=== PATIENT | female | born 1985 | race Caucasian/White ===

== ENCOUNTER 2017-10-09 10:30 | Inpatient (IN) | payer OTHER ==
[2017-10-09] MEDS ORDERED: CITRIC ACID/SODIUM CITRATE 30 ML UNIT-DOSE CUP PO ONE (10:56)
[2017-10-09] MEDS ORDERED: ELECTROLYTE-148 SOLN 1,000 ML IV SCH (11:00)
[2017-10-09 11:20] VITALS: BMI 34.0
--- NOTE | 2017-10-09 11:32 | HP ---
Past Medical History - Primary Care Physician PCP:: Gurpreet Gillis - Admission Chief Complaint: 39 weeks, breech presentation for c/s History of Present Illness: 31 yo f g1 po edc by date and sono 10/13/17 39 weeks ,breech presentation, confirmed with bed side sono admitted for c/s rba discussed, cx closed 50, breech ,high , fhr cat 1, History Source: Patient Limitations to Obtaining History: Language Barrier - Past Medical History ...: 1 ...Para: 0 ...Term: 0 ...: 0 ...Spon : 0 ...Induced : 0 ...Multiple Gestation: 0 ...LMP: 01/06/17 ... Weeks Gestation by Dates: 27.0 ...EDC by Dates: 10/13/17 ...EDC by Sono: 10/13/17 - Past Surgical History Hx Myomectomy: No Hx Transabdominal Cerclage: No - Smoking History Smoking history: Never smoked Have you smoked in the past 12 months: No - Alcohol/Substance Use Hx Alcohol Use: No - Social History Usual Living Arrangement: Yes: With Spouse History of Recent Travel: No Home Medications - Allergies Allergies/Adverse Reactions: Allergies Allergy/AdvReac Type Severity Reaction Status Date / Time No Known Allergies Allergy Verified 07/14/17 18:14 - Home Medications Home Medications: Ambulatory Orders Pnv No.95/Ferrous Fum/Folic AC [ Vitamin Tablet] 1 each PO DAILY Review of Systems - Review of Systems Constitutional: reports: No Symptoms Eyes: reports: No Symptoms HENT: reports: No Symptoms Neck: reports: No Symptoms Cardiovascular: reports: No Symptoms Respiratory: reports: No Symptoms Gastrointestinal: reports: No Symptoms Genitourinary: reports: No Symptoms Breasts: reports: No Symptoms Reported Musculoskeletal: reports: No Symptoms Integumentary: reports: No Symptoms Neurological: reports: No Symptoms Endocrine: reports: No Symptoms Hematology/Lymphatic: reports: No Symptoms Psychiatric: reports: No Symptoms Physical Exam - Maternity Vital Signs: Vital Signs Temperature 98 F 10/09/17 10:30 Pulse Rate 83 10/09/17 10:30 Respiratory Rate 18 10/09/17 10:30 Blood Pressure 138/76 10/09/17 10:30 O2 Sat by Pulse Oximetry (%) Constitutional: Yes: Well Nourished, No Distress, Calm Eyes: Yes: WNL, Conjunctiva Clear, EOM Intact HENT: Yes: WNL, Atraumatic, Normocephalic Neck: Yes: WNL, Supple, Trachea Midline Cardiovascular: Yes: WNL, Regular Rate and Rhythm Breast(s): Yes: WNL - Abdominal Exam/OB Number of Fetuses: Single Presentation: Vertex Contractions: No Intensity: Unaware Monitor Mode: External Heart Rate Location: [facility] Category: I Accelerations: Uniform - Vaginal Exam/OB Vaginal Bleediing: No Speculum Exam: No Dilatation (cm): closed Effacement (%): 50 Amniotic Membrane Status: Intact Station: -4 - Physical Exam Musculoskeletal: Yes: WNL Extremities: Yes: WNL Edema: Yes Edema: LLE: Trace, RLE: Trace Deep Tendon Reflex Grade: Normal +2 Hemorrhage Risk Assessment - Risk Factors Medium Risk Factors: Yes: None High Risk Factors: Yes: None Risk Score: 1 Risk Level: Medium Risk Problem List - Problems (1) with 39 completed weeks gestation Code(s): Z3A.39 - 39 WEEKS GESTATION OF (2) Breech presentation Code(s): O32.1XX0 - MATERNAL CARE FOR BREECH PRESENTATION, UNSP Qualifiers: Fetus number: single or unspecified fetus Qualified Code(s): O32.1XX0 - Maternal care for breech presentation, not applicable or unspecified Assessment/Plan c/s rba discussed
[2017-10-09] MEDS ORDERED: morphine SULFATE/Preservative Free 0.5 MG/ML (1cc Syringe) ONE (13:10)
[2017-10-09] MEDS ORDERED: ePHEDrine SULFATE 50 MG/1 ML AMPULE ONE (13:10)
[2017-10-09] MEDS ORDERED: PHENYLEPHRINE HCL 10 MG/1 ML SINGLE DOSE VIAL ONE (13:10)
[2017-10-09] MEDS ORDERED: OXYTOCIN 20 UNITS in 0.9% NS 20 UNIT/1,000 ML INFUS.BAG IV ONE ×2 (13:34→15:46)
[2017-10-09] MEDS ORDERED: BENZOCAINE 28 GM HEMORRHOIDAL OINTMENT PR PRN (13:42)
[2017-10-09] MEDS ORDERED: BENZOCAINE 20% 57 GM BOTTLE TP PRN (13:42)
[2017-10-09] MEDS ORDERED: WITCH HAZEL 50% (TUCKS) 40 PAD/JAR PAD TP PRN (13:42)
[2017-10-09] MEDS ORDERED: IBUPROFEN 800 MG/8 ML IJ IVPB PRN (13:42)
[2017-10-09] MEDS ORDERED: METHYLERGONOVINE MALEATE 0.2 MG/1 ML AMP IM PRN (13:42)
[2017-10-09] MEDS ORDERED: oxyCODONE HCL 5 MG TABLET PO PRN (13:42)
[2017-10-09] MEDS ORDERED: diphenhydrAMINE HCL 25 MG CAPSULE (FP) PO PRN (13:42)
[2017-10-09] MEDS ORDERED: OXYTOCIN 20 UNITS in 0.9% NS 20 UNIT/1,000 ML INFUS.BAG IV SCH (13:45)
[2017-10-09] MEDS ORDERED: DEXTROSE 5%-LACTATED RINGERS 1,000 ML IV SCH (13:45)
[2017-10-09] MEDS ORDERED: morphine SULFATE/Preservative Free 0.5 MG/ML (1cc Syringe) SPIN ONE (14:48)
[2017-10-09] MEDS ORDERED: ONDANSETRON 4 MG/2 ML VIAL IVPUSH PRN (14:48)
--- NOTE | 2017-10-09 16:19 | OP ---
DATE OF OPERATION: 10/09/2017 PREOPERATIVE DIAGNOSES: , 39 weeks; breech presentation. POSTOPERATIVE DIAGNOSES: , 39 weeks; breech presentation, double footling breech; and fibroid uterus. SURGEON: Gurpreet Gillis MD GUM DIPPER: KURT Moyer ANESTHESIA: Spinal anesthesia. ANESTHESIOLOGIST: Dr. Huffman ESTIMATED BLOOD LOSS: 700 mL. OPERATIVE REPORT: Patient was taken to operating room. Under adequate spinal anesthesia, abdomen and perineum were prepped and draped. Pfannenstiel abdominal skin incision was made. Abdominal wall was cut layer by layer until peritoneum was exposed and incised. Upon entering the abdominal cavity, palpation of the uterus showed the baby appeared to be in breech presentation with multiple fibroids intramural felt. Then bladder flap was developed and then a low-transverse incision was made. Incision extended laterally. Amniotic sac was entered, clear fluid. Double footling breech was delivered via breech without any difficulty. Live baby girl was delivered, 9, 9. Placenta was delivered manually. Uterine cavity was cleared of all remaining tissue. Uterine incision was closed in 2 layers, 1st layer with 0 Biosyn continuous suture, the 2nd layer with 0 Biosyn imbricating the 1st layer. Bladder flap was closed with 0 Vicryl continuous suture. Both tubes and ovaries were checked and normal. No active bleeding was seen. Also, multiple submucous leiomyoma were felt during the cleaning of the cavity and then all the lap pads, sponge count, and instrument count were correct. Pelvic cavity several times irrigated and then peritoneum was closed with 0 Biosyn continuous suture, muscles were brought together with interrupted suture of 0 Biosyn, fascia was closed with 0 Biosyn continuous suture, subcutaneous fat with interrupted suture of 0 Biosyn and the skin was closed with isra. Patient tolerated procedure, left OR in good condition. Dieter [id number]
[2017-10-09] MEDS: CEFAZOLIN 1 GM PUSH 1 GM/10 ML DISP.SYRIN IVPUSH SCH (18:31)
[2017-10-10] MEDS: CEFAZOLIN 1 GM PUSH 1 GM/10 ML DISP.SYRIN IVPUSH SCH ×2 (02:06→10:07)
[2017-10-10 08:09] LABS: BASO % 0.5 % (0-2.0); EOS % 1.1 % (0-4.5); HEMATOCRIT 31.5 % (32.4-45.2); HEMOGLOBIN 10.4 GM/dL (10.7-15.3); LYMPH % 16.7 % (8-40); MCH 27.5 pg (25.7-33.7); MEAN CELL VOLUME 83.2 fl (80-96); NEUT % 74.7 % (42.8-82.8); PLATELET COUNT 140 K/MM3 (134-434); RBC 3.79 M/mm3 (3.60-5.2); RDW 16.8 % (11.6-15.6); WHITE BLOOD COUNT 9.3 K/mm3 (4.0-10.0)
--- NOTE | 2017-10-10 08:58 | PN ---
Progress Note (short form) - Note Progress Note: POD #1 - s/p under spinal anesthesia with duramorph. VSS. Pt. doing well, sitting up comfortably in bed. No complaints. Good pain control. No apparent anesthetic complications noted. Continue current care.
[2017-10-10] MEDS: oxyCODONE HCL 5 MG TABLET PO PRN ×2 (09:23→21:56)
[2017-10-10] MEDS: SIMETHICONE 80 MG TAB.CHEW (FP) PO PRN ×2 (09:23→21:55)
--- NOTE | 2017-10-10 09:24 | PN ---
Post Progress Note Post Day: 1 Type of Delivery: Primary C/S Vital Signs: Vital Signs Temperature 99 F 10/10/17 06:00 Pulse Rate 83 10/10/17 01:13 Respiratory Rate 20 10/10/17 08:00 Blood Pressure 124/72 10/10/17 01:13 O2 Sat by Pulse Oximetry (%) 99 10/09/17 15:30 Breast Exam: Yes: Soft Uterus: Yes: Fundus Firm Incision: Yes: Dressing dry and intact Abdomen/GI: Yes: Abdomen soft Lochia: Yes: Rubra Lochia, amount: Small Extremities: Yes: Calves non-tender Perineum: Yes: Intact Activity: Ambulating - Labs Labs: CBC WBC 9.3 K/mm3 (4.0-10.0) 10/10/17 06:20 RBC 3.79 M/mm3 (3.60-5.2) D 10/10/17 06:20 Hgb 10.4 GM/dL (10.7-15.3) L D 10/10/17 06:20 Hct 31.5 % (32.4-45.2) L D 10/10/17 06:20 MCV 83.2 fl (80-96) 10/10/17 06:20 MCH 27.5 pg (25.7-33.7) 10/10/17 06:20 MCHC 33.0 g/dl (32.0-36.0) 10/10/17 06:20 RDW 16.8 % (11.6-15.6) H 10/10/17 06:20 Plt Count 140 K/MM3 (134-434) 10/10/17 06:20 MPV 9.0 fl (7.5-11.1) 10/10/17 06:20 Neutrophils % 74.7 % (42.8-82.8) 10/10/17 06:20 Lymphocytes % 16.7 % (8-40) 10/10/17 06:20 Monocytes % 7.0 % (3.8-10.2) 10/10/17 06:20 Eosinophils % 1.1 % (0-4.5) 10/10/17 06:20 Basophils % 0.5 % (0-2.0) 10/10/17 06:20 Assessment/Plan pain control oob reg diet continue care
[2017-10-10] MEDS: ACETAMINOPHEN 325 MG TABLET (FP) PO PRN ×2 (09:25→21:55)
[2017-10-10] MEDS ORDERED: FLU VACC QS2017-18 36MOS UP/PF 60 MCG/0.5 ML SYRINGE IM ONE (10:00)
[2017-10-10] MEDS: ENOXAPARIN NA (PORCINE) 40 MG/0.4 ML DISP.SYRIN SQ SCH (10:06)
[2017-10-10] MEDS ORDERED: BISACODYL 10 MG SUPP.RECT RC PRN (13:42)
[2017-10-11] MEDS: ACETAMINOPHEN 325 MG TABLET (FP) PO PRN ×5 (03:44→21:58)
[2017-10-11] MEDS: SIMETHICONE 80 MG TAB.CHEW (FP) PO PRN ×4 (03:44→17:05)
[2017-10-11] MEDS: oxyCODONE HCL 5 MG TABLET PO PRN ×4 (03:44→21:59)
[2017-10-11] MEDS: ENOXAPARIN NA (PORCINE) 40 MG/0.4 ML DISP.SYRIN SQ SCH (09:32)
--- NOTE | 2017-10-11 13:06 | PN ---
Post Progress Note - Subjective Subjective: Pt feeling well. +tolerating diet. Ambulating. +flatus. Pain well controlled. Post Day: 2 Type of Delivery: Primary C/S Vital Signs: Vital Signs Temperature 98.4 F 10/11/17 08:57 Pulse Rate 68 10/11/17 08:57 Respiratory Rate 20 10/11/17 08:57 Blood Pressure 133/80 10/11/17 08:57 O2 Sat by Pulse Oximetry (%) 99 10/09/17 15:30 Breast Exam: Yes: Soft Uterus: Yes: Fundus Firm Incision: Yes: Lonnie intact Abdomen/GI: Yes: Abdomen soft Lochia, amount: Small Extremities: Yes: Calves non-tender Activity: Ambulating - Labs Labs: CBC WBC 9.3 K/mm3 (4.0-10.0) 10/10/17 06:20 RBC 3.79 M/mm3 (3.60-5.2) D 10/10/17 06:20 Hgb 10.4 GM/dL (10.7-15.3) L D 10/10/17 06:20 Hct 31.5 % (32.4-45.2) L D 10/10/17 06:20 MCV 83.2 fl (80-96) 10/10/17 06:20 MCH 27.5 pg (25.7-33.7) 10/10/17 06:20 MCHC 33.0 g/dl (32.0-36.0) 10/10/17 06:20 RDW 16.8 % (11.6-15.6) H 10/10/17 06:20 Plt Count 140 K/MM3 (134-434) 10/10/17 06:20 MPV 9.0 fl (7.5-11.1) 10/10/17 06:20 Neutrophils % 74.7 % (42.8-82.8) 10/10/17 06:20 Lymphocytes % 16.7 % (8-40) 10/10/17 06:20 Monocytes % 7.0 % (3.8-10.2) 10/10/17 06:20 Eosinophils % 1.1 % (0-4.5) 10/10/17 06:20 Basophils % 0.5 % (0-2.0) 10/10/17 06:20 Assessment/Plan Pt POD#2 s/p primary c/s for breech. continue routine care ambulation as tolerated pain management as needed Dr. Magaña
[2017-10-11] MEDS: SENNOSIDES/DOCUSATE COMBO (SENNA PLUS) TABLET (UD) PO PRN (21:59)
[2017-10-12] MEDS: oxyCODONE HCL 5 MG TABLET PO PRN (02:53)
[2017-10-12] MEDS: IBUPROFEN 600 MG TABLET (FP) PO PRN ×4 (02:53→21:09)
[2017-10-12] MEDS: ACETAMINOPHEN 325 MG TABLET (FP) PO PRN ×3 (07:36→21:08)
[2017-10-12] MEDS: SIMETHICONE 80 MG TAB.CHEW (FP) PO PRN ×3 (07:37→21:08)
[2017-10-12 08:49] LABS: BASO % 0.7 % (0-2.0); EOS % 2.2 % (0-4.5); HEMATOCRIT 31.2 % (32.4-45.2); HEMOGLOBIN 10.2 GM/dL (10.7-15.3); LYMPH % 26.2 % (8-40); MCHC 32.6 g/dl (32.0-36.0); MEAN CELL VOLUME 82.9 fl (80-96); MEAN PLT VOLUME 8.6 fl (7.5-11.1); MONO % 6.8 % (3.8-10.2); NEUT % 64.1 % (42.8-82.8); PLATELET COUNT 179 K/MM3 (134-434); RBC 3.76 M/mm3 (3.60-5.2); RDW 16.6 % (11.6-15.6); WHITE BLOOD COUNT 6.9 K/mm3 (4.0-10.0)
[2017-10-12] MEDS: ENOXAPARIN NA (PORCINE) 40 MG/0.4 ML DISP.SYRIN SQ SCH (09:57)
[2017-10-12] MEDS: SENNOSIDES/DOCUSATE COMBO (SENNA PLUS) TABLET (UD) PO PRN (21:08)
[2017-10-13] MEDS: SIMETHICONE 80 MG TAB.CHEW (FP) PO PRN (06:06)
[2017-10-13] MEDS: ACETAMINOPHEN 325 MG TABLET (FP) PO PRN ×2 (06:06→11:54)
[2017-10-13] MEDS: IBUPROFEN 600 MG TABLET (FP) PO PRN ×2 (06:07→11:54)
--- NOTE | 2017-10-13 09:19 | DS ---
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 No blood transfusion, no additional dosage of antibiotic required. Condition: Good - Instructions Diet, Activity, Other Instructions: Regular diet No driving, no lifting x 4 weeks F/U in clinic in one week Disposition: HOME - Home Medications Comprehensive Discharge Medication List: Ambulatory Orders Pnv No.95/Ferrous Fum/Folic AC [ Vitamin Tablet] 1 each PO DAILY
[2017-10-13] MEDS: ENOXAPARIN NA (PORCINE) 40 MG/0.4 ML DISP.SYRIN SQ SCH (09:20)
[2017-10-13 11:27] VITALS: BP 113/64; PULSE 60; TEMP 97.8
--- NOTE | 2017-10-14 14:08 | PATH ---
Surgical Pathology Report Patient Name: EMMIE HORVATH Med. Rec. 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 Specimen(s) Received PLACENTA Clinical History , 39.3 weeks breech presentation Infertility treated with Clomid, fibroid uterus Final Diagnosis PLACENTA, SECTION: 579 g THIRD TRIMESTER PLACENTA WITH TRIVASCULAR UMBILICAL CORD AND UNREMARKABLE PLACENTAL MEMBRANES. Electronically Signed Ashley Crump M.D. Gross Description The specimen is received fresh labeled placenta and is a 579 gram, 17.5 x 13.5 x 3.2 cm. placenta with attached membranes and umbilical cord. The attached membranes are chu, translucent with focal opacities and insert marginally. The umbilical cord measures 35 cm. in length and averages 1 cm. in diameter. The cord inserts eccentrically, 5 cm. to the nearest margin. No true knots or strictures are identified. Cut surface of the umbilical cord reveals 3 vessels. The surface is perez-blue with minimal fibrin deposition and appropriate caliber vessels. The maternal surface is red-brown with focal defects. Sectioning reveals red-brown, spongy parenchyma. No lesions are identified. Business Process Lead sections are submitted in three cassettes as follows: 1- membrane rolls and umbilical cord; 2-3- full thickness sections of placenta. /10/13/201710/13/2017
== END 2017-10-13 13:10 | disposition home or self-care (01) | DRG 540 ==
LOC: JLDR 10:30 → J3W 16:40
PROVIDERS: ADMIT Obstetrics & Gynecology; ATTEND Obstetrics & Gynecology
PROC: 10D00Z1 Extraction of Products of Conception, Low, Open Approach (ICD-10-PCS; principal; 2017-10-09)
DX: O32.8XX0 Maternal care for other malpresentation of fetus, not applicable or unspecified (principal); O34.13 Maternal care for benign tumor of corpus uteri, third trimester; D25.1 Intramural leiomyoma of uterus; Z3A.39 39 weeks gestation of pregnancy; Z37.0 Single live birth
CPT/HCPCS: 36415; 85025; 88307-TC; 90686

== ENCOUNTER 2022-10-31 21:20 | Emergency (ER) | payer OTHER ==
[2022-10-31 21:36] VITALS: BP 146/78; PULSE 85; RESP 18; TEMP 98.1; BMI 31.1
[2022-10-31 23:35] LABS: BASO % 0.3 % (0-2.0); EOS % 0.1 % (0-4.5); HEMOGLOBIN 11.6 GM/dL (10.7-15.3); LYMPH % 15.9 % (8-40); MCH 23.4 pg (25.7-33.7); MCHC 31.3 g/dl (32.0-36.0); MEAN CELL VOLUME 74.6 fl (80-96); MEAN PLT VOLUME 9.5 fl (7.5-11.1); MONO % 4.1 % (3.8-10.2); NEUT % 79.6 % (42.8-82.8); PLATELET COUNT 277 10^3/uL (134-434); RBC 4.96 M/mm3 (3.60-5.2); RDW 16.4 % (11.6-15.6); WHITE BLOOD COUNT 8.1 K/mm3 (4.0-10.0)
[2022-10-31 23:51] LABS: ALBUMIN 3.8 g/dl (3.4-5.0); CALCIUM 8.8 mg/dL (8.5-10.1)
[2022-10-31 23:54] LABS: CREATININE 0.4 mg/dL (0.55-1.3)
[2022-10-31 23:57] LABS: BILIRUBIN,TOTAL 0.3 mg/dL (0.2-1); TOT PROT 7.5 g/dl (6.4-8.2)
[2022-11-01] MEDS ORDERED: DEXAMETHASONE 4 MG TABLET (FP) PO ONE (01:12)
[2022-11-01] MEDS ORDERED: DEXAMETHASONE 4 MG TABLET (FP) ONE (01:33)
== END 2022-11-01 01:53 | disposition home or self-care (01) ==
LOC: JER 21:20
DX: R04.0 Epistaxis (principal); J02.9 Acute pharyngitis, unspecified
CPT/HCPCS: 0241U-QW; 36415; 80053; 85025; 87070; 87651; 99283-25

== ENCOUNTER 2023-08-09 01:01 | Emergency (ER) | payer OTHER ==
[2023-08-09] MEDS ORDERED: ACETAMINOPHEN 325 MG TABLET (FP) ONE (01:02)
[2023-08-09 01:12] VITALS: BP 133/78; PULSE 90; RESP 18; TEMP 100.1; BMI 30.1
[2023-08-09 01:13] LABS: HEMATOCRIT 36.4 % (32.4-45.2); HEMOGLOBIN 11.8 GM/dL (10.7-15.3); PLATELET COUNT 201 10^3/uL (134-434); RBC 5.04 M/mm3 (3.60-5.2); WHITE BLOOD COUNT 8.6 K/mm3 (4.0-10.0)
[2023-08-09] MEDS ORDERED: ACETAMINOPHEN 325 MG TABLET (FP) PO ONE (01:38)
[2023-08-09] MEDS ORDERED: SODIUM CHLORIDE 0.9% 500 ML INFUS.BAG IV ONE (01:41)
[2023-08-09 02:02] LABS: ALBUMIN 3.6 g/dl (3.4-5.0); BILIRUBIN,TOTAL 0.4 mg/dL (0.2-1); BLOOD UREA NITROGEN 5.7 mg/dL (7-18); CALCIUM 8.4 mg/dL (8.5-10.1); CREATININE 0.5 mg/dL (0.55-1.3); TOT PROT 7.2 g/dl (6.4-8.2)
[2023-08-09 04:16] LABS: EPI CELLS 15 /uL (0-25.1); HYALINE CASTS 0 /uL (0-3.1); URINE APPEARANCE CLEAR; URINE BACTERIA 6 /uL (0-1359); URINE BILIRUBIN NEGATIVE (NEGATIVE); URINE COLOR YELLOW; URINE GLUCOSE (UA) NEGATIVE (NEGATIVE); URINE KETONE NEGATIVE (NEGATIVE); URINE LEUK ESTERASE 1+ (NEGATIVE); URINE NITRITE NEGATIVE (NEGATIVE); URINE PROTEIN NEGATIVE (NEGATIVE); URINE RBC 15 /uL (0-23.9); URINE UROBILINOGEN 0.2 mg/dL (0.2-1.0); URINE WBC 39 /uL (0-25.8)
[2023-08-09] MEDS ORDERED: NITROFURANTOIN MACROCRYSTAL 50 MG CAPSULE (FP) PO SCH (05:15)
[2023-08-09] MEDS ORDERED: metroNIDAZOLE 250 MG TABLET PO ONE (05:20)
== END 2023-08-09 05:47 | disposition home or self-care (01) ==
LOC: JER 01:01
DX: R10.9 Unspecified abdominal pain (principal); R19.7 Diarrhea, unspecified; R00.0 Tachycardia, unspecified; R11.0 Nausea; R50.9 Fever, unspecified; Z20.822 Contact with and (suspected) exposure to COVID-19
CPT/HCPCS: 0241U-QW; 36415; 80053; 81003; 83690; 84703; 85025; 87086; 99283-25

== ENCOUNTER 2023-11-02 04:29 | Day surgery (SDC) | payer OTHER ==
[2023-11-02 10:17] VITALS: BMI 28.3
[2023-11-02] MEDS ORDERED: ePHEDrine SULFATE 50 MG/1 ML AMPULE ONE (11:03)
[2023-11-02] MEDS ORDERED: METOCLOPRAMIDE HCL INJECTION 10 MG/2 ML VIAL ONE (11:04)
[2023-11-02] MEDS ORDERED: ONDANSETRON 4 MG/2 ML VIAL ONE (11:04)
[2023-11-02] MEDS ORDERED: DEXAMETHASONE SOD PHOSPHATE 4 MG/1 ML VIAL ONE (11:04)
[2023-11-02] MEDS ORDERED: SODIUM CHLORIDE 0.9% P/F 10 ML VIAL IJ ONE ×2 (11:04→11:35)
[2023-11-02] MEDS ORDERED: LIDOCAINE HCL/PF 2% SDV 5ML VIAL ONE (11:04)
[2023-11-02] MEDS ORDERED: ceFAZolin SODIUM 1 GM VIAL ONE (11:04)
[2023-11-02] MEDS ORDERED: SUCCINYLCHOLINE CHLORIDE 200 MG/10 ML SYRINGE ONE (11:04)
[2023-11-02] MEDS ORDERED: KETOROLAC TROMETHAMINE 30 MG/1 ML VIAL ONE (11:04)
[2023-11-02] MEDS ORDERED: ACETAMINOPHEN INJECTION 100 ML IVPB ONE (11:07)
[2023-11-02] MEDS ORDERED: PROPOFOL 20 ML ONE ×2 (11:12→11:27)
[2023-11-02] MEDS ORDERED: MIDAZOLAM HCL 2 MG/2 ML SINGLE DOSE VIAL ONE (11:13)
[2023-11-02] MEDS: ceFAZolin SODIUM 1 GM VIAL IVPB ONE (11:25)
[2023-11-02] MEDS ORDERED: HYDROmorphone HCl 2 MG/ML VIAL ONE (11:33)
[2023-11-02] MEDS ORDERED: KETAMINE HCL 200 MG/20 ML VIAL ONE (11:39)
[2023-11-02] MEDS ORDERED: MAGNESIUM SULF 50% (8.12 MEQ/2 ML-1 GM VIAL) ONE (11:40)
[2023-11-02] MEDS ORDERED: GLYCOPYRROLATE 0.2 MG/1 ML VIAL ONE (11:40)
[2023-11-02] MEDS ORDERED: SUGAMMADEX SODIUM 200 MG/2 ML VIAL ONE (12:06)
[2023-11-02] MEDS ORDERED: ONDANSETRON 4 MG/2 ML VIAL IVPUSH PRN (12:41)
[2023-11-02] MEDS ORDERED: oxyCODONE HCL 5 MG TABLET PO PRN (12:41)
[2023-11-02] MEDS ORDERED: LACTATED RINGERS SOLUTION 1,000 ML IV SCH (12:45)
[2023-11-02] MEDS ORDERED: LIDOCAINE HCL 2% 100 MG/5 ML DISP.SYRIN ONE (14:56)
[2023-11-02 15:36] VITALS: RESP 16
[2023-11-02 17:10] VITALS: BP 125/75; PULSE 85; TEMP 97.3
== END 2023-11-02 17:10 | disposition home or self-care (01) ==
LOC: JASU-SURG 04:29
PROVIDERS: ATTEND Obstetrics & Gynecology
PROC: 0UB98ZZ Excision of Uterus, Via Natural or Artificial Opening Endoscopic (ICD-10-PCS; principal; 2023-11-02 11:45)
PROC: 0UB24ZZ Excision of Bilateral Ovaries, Percutaneous Endoscopic Approach (ICD-10-PCS; 2023-11-02 11:45)
DX: N83.202 Unspecified ovarian cyst, left side (principal); N83.201 Unspecified ovarian cyst, right side; N84.0 Polyp of corpus uteri; N80.00 Endometriosis of the uterus, unspecified
CPT/HCPCS: 81025; 86850; 86900; 86901; 88305-TC; 94760; J0131